=== PATIENT | female | born 1990 | race Caucasian/White ===

== ENCOUNTER 2024-01-23 16:30 | Emergency (ER) | payer OTHER ==
[~2024-01-23] VITALS: Ht 165.1 cm; Wt 81.6 kg
[2024-01-23 16:56] VITALS: BP 169/110; PULSE 63; RESP 18; TEMP 98.1; O2SAT 100
[2024-01-23 17:49] VITALS: BP 169/110; PULSE 63; RESP 18; TEMP 98.1; O2SAT 100
== END 2024-01-23 17:49 | disposition home or self-care (01) ==
LOC: MED 16:30
DX: S61.306A Unspecified open wound of right little finger with damage to nail, initial encounter (principal); I10 Essential (primary) hypertension; W23.0XXA Caught, crushed, jammed, or pinched between moving objects, initial encounter; Y93.89 Activity, other specified; Y92.89 Other specified places as the place of occurrence of the external cause; Y99.8 Other external cause status
CPT/HCPCS: 73140; 99283